=== PATIENT | female | born 1980 | race Caucasian/White ===

== ENCOUNTER 2016-07-17 14:14 | Outpatient (CLI) | payer OTHER ==
--- NOTE | 2016-07-17 15:01 | DIAGNOSTIC IMAGING REPORT ---
PROCEDURE: US COMPLETE PELVIC W/TRANSVAG INDICATION: PELVIC PAIN TECHNIQUE: Transabdominal and endovaginal sow scale and color Doppler sonographic images of the female pelvis were obtained. COMPARISON: None. FINDINGS: TRANSABDOMINAL SCANS: The uterus is of normal size 5.7 x 5.9 x 3.5 cm Kidneys are normal. TRANSVAGINAL SCANS: The uterus is retroverted Myometrium is normal. The endometrium measures 13 mm. Right ovary is normal measuring 3.1 x 2.3 x 1.5 cm The left ovary is normal measuring 4.3 x 3 x 1.8 cm. There is an 18 mm involuting follicle on the left ovary. Good flow is noted in both ovaries. There is an IUD in correct position. IMPRESSION: 1. Normal uterus and ovaries and kidneys. 2. IUD noted in satisfactory position. Retroverted uterus.
== END 2016-07-17 23:00 ==
LOC: US SRH 14:14
DX: N93.9 Abnormal uterine and vaginal bleeding, unspecified (principal); Z97.5 Presence of (intrauterine) contraceptive device